=== PATIENT | male | born 1950 | race Caucasian/White ===

== ENCOUNTER → 2017-11-23 | Outpatient (CLI) | payer OTHER, BC ==
[~2017-11-23] VITALS: Ht 167.6 cm; Wt 163.3 kg
[~2017-11-23] MED LIST: ASPIR 8181 MG PO; FLOMAX0.4 MG PO
--- NOTE | ~2017-11-23 | P ---
[facility] [place] [address] PROCEDURE REPORT Name: KYLER SALGADO Room #: REG [facility]#: [id number] Admission: 11/23/17 Attend Phys: Ziyad Miller MD Discharge: Date of : 50 Report #: [id number] THIS REPORT FOR: //name// CC: Shane Miller DATE OF SERVICE: 11/23/2017 BRIEF HISTORY: The patient is a 67-year-old male for average risk screening colonoscopy. His last colonoscopy was in 2006. He did have a hyperplastic polyp removed at that time. No adenomatous polyps were found. PREOPERATIVE DIAGNOSIS: Average risk screening colonoscopy. POSTOPERATIVE DIAGNOSES: 1. Multiple colon polyps. 2. Moderate diverticulosis coli, sigmoid colon. MEDICATIONS: Deep sedation with propofol per anesthesia. SPECIMEN: 1. A 10-mm flat polyp, proximal ascending colon. 2. Diminutive polyp at 80 cm. 3. Diminutive polyps x 3 at 50 cm. 4. Diminutive rectal polyp. ESTIMATED BLOOD LOSS: 3 mL. PROCEDURE: Colonoscopy to cecum and terminal ileum with snare polypectomy and biopsy. FINDINGS: Prior to propofol sedation, procedure of colonoscopy discussed with the patient as well as potential risks and its complications. He indicates he understands and desires to proceed. DESCRIPTION OF PROCEDURE: With the patient in left lateral decubitus position, digital examination was completed which revealed no abnormalities. Subsequently, the [employer] video colonoscope was introduced in the rectum, advanced under direct vision to the cecum. Done with minimal difficulty. The cecum was identified by the ileocecal valve and the appendiceal orifice. I was able to visualize the distal segment of terminal ileum, which was inspected and noted to be unremarkable. At that point, the scope was slowly withdrawn and careful circumferential views obtained. Upon slow withdrawal of the scope, there were some prep limitations. As we withdrew the scope, a flat polyp was seen in the proximal ascending colon. It was 10 mm in greatest dimension. It was removed [address] [address] PROCEDURE REPORT Name: KYLER SALGADO [id number] Admission: 11/23/17 Attend Phys: Ziyad Miller MD Discharge: Date of : 50 Report #: [id number] in a piecemeal fashion with a cold snare. Edges were cleaned up with the biopsy forceps. Total polypectomy was achieved. The scope was further withdrawn. We had to irrigate and lavage with regards to prep limitations. A fair prep was obtained. As we withdrew the scope further, a diminutive polyp was seen and removed by biopsy at 80 cm. There were 3 polyps noted at 50 cm. They were all diminutive polyps removed with biopsy forceps. The scope was withdrawn through the sigmoid colon and mild sigmoid diverticular disease was noted. In the rectum, there were several hyperplastic appearing polyps which had typical appearance were not removed; however, there was an erythematous diminutive polyp, which may be an adenomas removed by biopsy. Upon retroflexion, no additional abnormalities were seen. Scope was withdrawn. The patient tolerated the procedure well. CONDITION OF THE PATIENT UPON DISCHARGE: Following procedure, the patient drowsy, aroused, conversant and will be discharged home when fully ambulatory. INSTRUCTIONS TO THE PATIENT AND FAMILY AT THE TIME OF DISCHARGE: Multiple polyps identified and removed as described above. There were some prep limitations. The proximal ascending colon polyp was likely an advanced adenoma due to its size. We will follow up on pathology. We will have him return in 2 years for followup colon exam as due to the prep limitations, the small lesions could have been overlooked. Last colonoscopy in 2006. <ELECTRONICALLY SIGNED> By: Ziyad Miller MD 11/24/17 1710 1053 1222 Ziyad Miller MD /nt
--- NOTE | ~2017-11-23 | PATH ---
[facility] [address] [place] [address] PATHOLOGY RPT PROCEDURE Name: KYLER SALGADO Room #: REG [facility].#: [id number] Admission: 11/23/17 Date of : 50 Discharge: Report #: [id number] Path Case #: [id number] [facility] Accession Number: [id number] . 01 Material submitted: . PART A: PROXIMAL ASCENDING COLON POLYP PART B: COLON POLYP 80CM BIOPSY PART C: COLON POLYP 50CM BIOPSY X3 PART D: RECTAL POLYP . 01 Clinical history: . Pre-OP DX: Hx colon polyps Post- OP DX: Colon polyps, diverticulosis . 02 Diagnosis: A. Polyp, proximal ascending colon polyp, endoscopic biopsy: - Tubular adenoma. - Negative for high-grade dysplasia. . B. Polyp, colon polyp 80 cm, endoscopic biopsy: - Tubular adenoma. - Negative for high-grade dysplasia. . C. Polyp, colon polyp x 3 50 cm, endoscopic biopsy: - Multiple fragments of tubular adenoma without high-grade dysplasia. - Two fragments of hyperplastic polyp without dysplasia. . D. Polyp, rectal polyp, endoscopic biopsy: - Tubular adenoma. - Negative for high-grade dysplasia. (IUV:pit 11/25/2017) QTP11/25/2017 . 02 Electronically signed: . Melissa Ramey MD, Pathologist NPI- [id number] . 01 Gross description: . A. Received in formalin labeled "Kyler Salgado, proximal ascending colon polyp," are 6 segments of truong soft tissue measuring 2.2 x 1.5 x 0.3 cm in aggregate dimensions and ranging from 0.3 to 0.7 cm in maximum dimension. The specimen is submitted entirely in cassette A1. . B. Received in formalin labeled "Kyler Salgado, colon polyp 80 cm BX," is a single segment of truong soft tissue measuring 0.5 cm in maximum dimension. The specimen is submitted entirely in cassette B1[place] [address] PATHOLOGY RPT PROCEDURE Name: KYLER SALGADO A [id number] Admission: 11/23/17 Date of : 50 Discharge: Report #: [id number] Path Case #: [id number] C. Received in formalin labeled "Kyler Salgado, colon polyp at 50 cm x3," are 4 segments of truong soft tissue measuring 1.5 x 1.1 x 0.3 cm in aggregate dimensions and ranging from 0.3 to 0.5 cm in maximum dimension. The specimen is submitted entirely in cassette C1. . D. Received in formalin labeled "Kyler Salgado, rectal polyp BX," is a single segment of truong soft tissue measuring 0.4 cm in maximum dimension. The specimen is submitted entirely in cassette D1. (TSD; 11/23/2017) TOB/TOB . 02 Pathologist provided ICD-10: D12.2, D12.6, D12.8 . 02 CPT . 192323, 273018, 526153, [id number] Performed at: [address], [place] [id number] MD Yandel Pillai MD Phone: [phone] Performed at: [address] [id number] MD Melissa Ramey MD Phone: [phone]
== END | disposition home or self-care (01) ==
LOC: GI 08:20
DX: Z12.11 Encounter for screening for malignant neoplasm of colon (principal); D12.2 Benign neoplasm of ascending colon; D12.5 Benign neoplasm of sigmoid colon; D12.4 Benign neoplasm of descending colon; D12.8 Benign neoplasm of rectum; K63.5 Polyp of colon; K57.30 Diverticulosis of large intestine without perforation or abscess without bleeding; G47.30 Sleep apnea, unspecified; F17.290 Nicotine dependence, other tobacco product, uncomplicated; N40.0 Benign prostatic hyperplasia without lower urinary tract symptoms; E66.01 Morbid (severe) obesity due to excess calories; Z90.49 Acquired absence of other specified parts of digestive tract; Z96.653 Presence of artificial knee joint, bilateral; Z98.890 Other specified postprocedural states; Z86.718 Personal history of other venous thrombosis and embolism; Z85.828 Personal history of other malignant neoplasm of skin; Z86.010 Personal history of colon polyps; Z88.8 Allergy status to other drugs, medicaments and biological substances; Z79.82 Long term (current) use of aspirin; Z79.899 Other long term (current) drug therapy; Z87.442 Personal history of urinary calculi; Z68.43 Body mass index [BMI] 50.0-59.9, adult
CPT/HCPCS: 62110; 62900